=== PATIENT | female | born 1975 | race Caucasian/White ===

== ENCOUNTER → 2017-07-06 | Outpatient (CLI) | payer BC ==
[~2017-07-06] MED LIST: AMLO5 PO; FE T325T PO; IBUP600 PO; LABE100 PO; PNVPAK PO; ZANTTAB9 PO
== END ==
LOC: HPND 07:49
PROVIDERS: ATTEND Obstetrics & Gynecology
DX: O35.1XX0 Maternal care for (suspected) chromosomal abnormality in fetus, not applicable or unspecified (principal)
CPT/HCPCS: 76811; 76825; 76827; 93325

== ENCOUNTER → 2017-07-13 | Outpatient (CLI) | payer BC | LOC: HPND 11:02 | PROVIDERS: ATTEND Obstetrics & Gynecology | DX: O35.8XX0 Maternal care for other (suspected) fetal abnormality and damage, not applicable or unspecified (principal); O09.522 Supervision of elderly multigravida, second trimester | CPT/HCPCS: 76815 ==